=== PATIENT | female | born 1995 | race Caucasian/White ===

== ENCOUNTER 2022-10-02 05:32 | Outpatient (CLI) | payer BC ==
[~2022-10-02] VITALS: Ht 165.1 cm; Wt 102.3 kg
== END 2022-10-02 14:43 | disposition home or self-care (01) ==
LOC: PREOP 05:32
PROVIDERS: ATTEND Otolaryngology Otolaryngology/Facial Plastic Surgery
DX: Z01.818 Encounter for other preprocedural examination (principal)

== ENCOUNTER 2022-10-10 06:09 | Day surgery (SDC) | payer BC ==
[~2022-10-10] VITALS: Ht 165.1 cm; Wt 102.3 kg
[2022-10-10] VITALS (9 sets, daily range): BP systolic 95–127; BP diastolic 51–81
[2022-10-10] MEDS ORDERED: LACTATED RINGERS 1,000 ML IV PRN (06:30)
[2022-10-10] MEDS ORDERED: fentaNYL INJ 100 MCG/2 ML AMP ONE (07:09)
[2022-10-10] MEDS ORDERED: MIDAZOLAM 2 MG/2 ML (VERSED) VIAL ONE (07:10)
--- NOTE | 2022-10-10 07:16 | Progress Note-Pre Operative ---
Pre-Operative Progress Note Date of Available H&P: Oct 10, 2022 Date H&P Reviewed: Oct 10, 2022 Time H&P Reviewed: 06:30 History & Physical: H&P Reviewed, Patient Examed, No changes noted Changes from last HP none Pre-Operative Diagnosis: DARLIN Warner MD Oct 10, 2022 07:16
--- NOTE | 2022-10-10 07:16 | Progress Note-Post Operative ---
Post-Operative Progess Note Surgeon (s)/Engine Turner (s) Surgeon DARLIN MAHMOOD MD Engine Turner n/a Pre-Operative Diagnosis Bilat BELKIS Post-Operative Diagnosis same Post-Op Procedure Note Date of Procedure: Oct 10, 2022 Name of Procedure Performed: BMT Description & Findings Description and Findings: n/a Anesthesia Type mask Estimated Blood Loss minimal Packing none. Specimen(s) collected/removed none DARLIN MAMHOOD MD Oct 10, 2022 07:16
[2022-10-10] MEDS ORDERED: APAP 325 MG/10.15 ML LIQ (TYLENOL) UDC PO PRN (07:30)
[2022-10-10] MEDS ORDERED: OFLO5DRO33 EACH EAR (08:20)
[2022-10-10] MEDS ORDERED: proPOfol 200 MG/20 ML (DIPRIVAN) VIAL IV ONE (08:21)
[2022-10-10] MEDS ORDERED: ONDANSETRON 4 MG/2 ML (SDV) Z0FRAN ONE (08:22)
[2022-10-10] MEDS ORDERED: SEVOFLURANE (ULTANE) 15 ML INHAL SOLN ONE (08:22)
[2022-10-10] MEDS ORDERED: LIDOCAINE PF 2% 5 ML (XYLOCAINE) VIAL ONE (08:22)
--- NOTE | 2022-10-10 09:52 | Anesthesia-General Post-Op ---
General Patient Condition Mental Status/LOC: Same as Preop Cardiovascular: Satisfactory Nausea/Vomiting: Absent Respiratory: Satisfactory Pain: Controlled Complications: Absent Post Op Complications Complications None Follow Up Care/Instructions Patient Instructions None needed. Anesthesia/Patient Condition Patient Condition Patient is doing well, no complaints, stable vital signs, no apparent adverse anesthesia problems. No complications reported per nursing. STEFAN MONROY CRNA Oct 10, 2022 09:52
== END 2022-10-10 10:00 ==
LOC: SDC 06:09
PROVIDERS: ATTEND Otolaryngology Otolaryngology/Facial Plastic Surgery
DX: H65.23 Chronic serous otitis media, bilateral (principal); H74.03 Tympanosclerosis, bilateral; H69.83 Other specified disorders of Eustachian tube, bilateral; E66.9 Obesity, unspecified; Z68.37 Body mass index [BMI] 37.0-37.9, adult; F17.290 Nicotine dependence, other tobacco product, uncomplicated
CPT/HCPCS: 84703; 87081